=== PATIENT | male | born 2000 | race Caucasian/White ===

== ENCOUNTER → 2022-04-14 | Outpatient (CLI) | payer SELFPAY | END | disposition home or self-care (01) | PROVIDERS: Visit Provider Family Medicine | DX: R19.7 Diarrhea, unspecified (principal) | CPT/HCPCS: 87506 ==

== ENCOUNTER → 2022-05-04 | Outpatient (CLI) | payer OTHER, SELFPAY ==
[2022-05-04 12:50] LABS: Anion Gap 8 (5-15); BUN 11 mg/dL (7-18); BUN/Creat Ratio 15.6 RATIO (10-20); Calcium,Total 9.6 mg/dL (8.5-10.1); Chloride 106 mmol/L (98-107); Cholesterol 186 mg/dL (200); Creatinine, Serum 0.71 mg/dL (0.70-1.30); EST Glomerular Filtration Rate 147 mL/min (>60); Est Glom Filt Rate - Afr Amer 178 mL/min (>60); Glucose 89 mg/dL (74-106); High Density Lipoprotein 31 mg/dL; Potassium 3.8 mmol/L (3.5-5.1); Sodium Level 139 mmol/L (136-145); Triglycerides 166 mg/dL; Very Low Density Lipoprotein 33 mg/dL (5-40)
== END | disposition home or self-care (01) ==
LOC: MFPLAB 11:11
PROVIDERS: PCP Family Medicine; Referring Provider Family Medicine; Visit Provider Family Medicine
DX: Z13.1 Encounter for screening for diabetes mellitus (principal); Z13.220 Encounter for screening for lipoid disorders
CPT/HCPCS: 36415; 80048; 80061

== ENCOUNTER 2025-05-26 08:29 | Observation (INO) | payer MEDICAID, SELFPAY ==
[2025-05-26] VITALS (12 sets, daily range): BP systolic 118–169; BP diastolic 66–92; PULSE 55–95; RESP 14–25; TEMP 36.4–36.8; O2SAT 97–100; BMI 35.2; BMI 34.6
--- NOTE | 2025-05-26 08:56 | RAD_ITS ---
PROCEDURE: CHEST PA AND LATERAL 05/26/2025 REASON FOR EXAM: CHEST PAIN TECHNIQUE: CHEST PA AND LATERAL COMPARISON: None. FINDINGS: Heart: The heart size is normal. Mediastinum: The mediastinal contour is unremarkable. Lungs: The lungs are clear. Bones: The bones are unremarkable. No pleural effusion or pneumothorax is noted. RAD/Chest PA and Lateral IMPRESSION: NEGATIVE CHEST Reading Location: [place] [id number]
--- NOTE | 2025-05-26 08:56 | ED.VIS.DYS ---
HPI History of Present Illness Chief Complaint: Shortness of Breath Informant: patient and family Onset/Context/Timing Onset: Days Context: gradual Timing: Intermittent Quality: Positive for Dyspnea on exertion Current Severity: Moderate Maximum Severity: Moderate Worsened by: Exertion Relieved by: Rest Associated Symptoms Negative for cough Chest Pain: Positive for None Narrative Narrative: Healthy 24-year-old male no [facility] past medical history. States for the last 4 days started around Sunday he gets shortness of breath with exertion. No real chest pain. Says just walking in the ER up the ramp he had to stop. Denies any leg pain or swelling. No history of DVT or PE. No cardiac history. Denies any fever or chills. No significant cough. He has no known cardiac or pulmonary history. PE Risk Factors: Negative for Cancer, OCP + Smoking + > 35, Prior DVT or PE, Recent immobilization, Recent surgery or Recent travel Prior similar symptoms: No Recent Illness/Hospitalization: No PFSH PFSH Medical History no medical history no medical history Allergy/AdvReac Type Severity Reaction Status Date / Time No Known Allergies Allergy Verified 05/26/25 08:33 Social History Smoking Status: Current every day smoker tobacco type: smokeless tobacco ROS ROS ED ROS Narrative Exertional dyspnea. No fever. No cough. No chest pain. Constitutional Constitutional ED: Denies chills or fever(s) Eyes Eyes: Denies blurry vision ENT ENT ED: Denies ear pain Cardiovascular Cardiovascular: Denies chest pain Respiratory/Chest Respiratory/Chest: Reports dyspnea and dyspnea on exertion; Denies cough or sputum Gastrointestinal Gastrointestinal: Denies abdominal pain, constipation, diarrhea, melena, nausea or vomiting Genitourinary Genitourinary ED: Denies dysuria or hematuria Musculoskeletal Musculoskeletal: Denies arthralgias or back pain Integumentary Denies abscess or Abrasions Neurologic Neurologic: Denies headache(s) or paresthesias Psychiatric Psychiatric: Denies anxiety or depression Endocrine Endocrinology: Denies cold intolerance Hematologic/Lymphatic Hematologic/Lymphatic: Denies easy bleeding, easy bruising or lymphadenopathy Allergic/Immunologic Allergic/Immunologic ED: Denies mouth swelling, tongue swelling or urticaria EXAM Physical Exam Narrative Exam Narrative: 24-year-old male vital signs stable afebrile pulse ox 100% on room air clinically looks well sitting upright in bed. Family in the room. No distress. H EENT exam pupils round react light. Moist mucous membranes. Neck nontender no JVD. No lymphadenopathy. Back nontender. Lungs clear to auscultation bilaterally. Heart regular rate and rhythm rate about 60 no murmur. Chest wall and ribs nontender. Abdomen soft nontender. Moving all 4 extremities. Calves are nontender without edema or cords. Normal contract serviceman strength. Normal dorsi plantarflexion. Equal symmetrical radial pulses. Neurologically he is awake and alert. Answering questions and following commands. He has a very benign unremarkable exam. There is no edema. There is no calf pain. He has a normal sounding heart there is no murmurs. Normal rhythm. Const Vital Signs: 05/26/25 08:30 05/26/25 09:02 05/26/25 09:02 Temperature 97.9 F 97.6 F L Temperature Source Oral Temporal Pulse Rate 56 L 56 L Respiratory Rate 16 14 Blood Pressure 169/92 H 127/67 H Blood Pressure Mean 117 87 Pulse Ox 100 100 Oxygen Delivery Method Room Air Room Air 05/26/25 10:29 05/26/25 12:09 05/26/25 13:00 Temperature Temperature Source Pulse Rate 55 L 56 L 95 Respiratory Rate 16 20 H 16 Blood Pressure Blood Pressure Mean Pulse Ox 99 97 Oxygen Delivery Method Positive well developed; Negative for cachectic, contractures or unkempt General Appearance ED: well developed and NAD; Negative for unkempt, cachectic, contractures or pallor Nutritional Appearance: Negative for cachectic HEENT Reports moist mucous membranes atraumatic Eyes PERRL and EOMs intact bilaterally Neck no lymphadenopathy, supple, no meningeal signs and no JVD Resp normal respiratory effort and clear to auscultation bilaterally Effort and Inspection: Negative for pain with movement Auscultation: Negative for rales, rhonchi, wheezes or diminished lung sounds Cardio regular rate, regular rhythm, S1 normal heart sound, S2 normal heart sound and no murmurs Rate: Negative for bradycardia or tachycardic Rhythm: Negative for abnormal rhythm GI non-tender, non-distended and no masses Auscultation: normoactive bowel sounds Palpation: soft; Negative for tender, guarding or rebound tenderness present Back/Spine no CVA tenderness and normal to inspection General Back: Negative for CVA tenderness, tenderness or other Extremity normal to inspection General Extremety ED: Negative for edema or tenderness General Extremity: Negative for edema Neuro oriented x3, CN's II-XII intact bilaterally and no sensory deficits noted Sensorium / Orientation: alert, oriented to person, oriented to place and oriented to time Motor Exam: strength 5/5 throughout Psych mental status grossly normal Appearance: Negative for unkempt Thought Process: normal thought process Skin no wounds and skin turgor normal General Skin Exam: Negative for jaundice or pallor Lesions: no lesions Rashes: no rashes MDM MDM MDM Narrative Medical decision making narrative: 24-year-old male 4-day history of exertional dyspnea. No prior medical history. No cardiac or pulmonary history. No history or risk factors for DVT or PE. He has a benign exam. Undergoing cardiac workup. He is not wheezing. There is no history of a URI. Multiple repeat exams patient is doing well on my recent evaluation. He and family are aware that his test results look good. He has an abnormal EKG with an A-V dissociation. I spoke with our transformer repairer who spoke to an EP transformer repairer at [facility] who accept the patient in transfer. History & Record Review Discussion w/independent historian: Patient and Family Additional record(s) reviewed:: Prior outpatient record, Prior ED visit and Prior labs Lab Data Attestation: I reviewed the patient's lab results. Lab results narrative: CBC shows a white count of 10 H&H 14 and 43. Platelets 388. D-dimer is less than 0.27 normal. Troponin is 7. Electrolytes are unremarkable. Gap 14. BUN and creatinine of 10 and 0.75. Glucose 97. Chest x-ray unremarkable. Labs: Laboratory Results - last 24 hr 05/26/25 09:00 WBC 10.2 RBC 5.16 Hgb 14.7 Hct 43.4 MCV 84.1 MCH 28.5 MCHC 33.9 RDW Std Deviation 36.8 RDW Coeff of Phuc 12.1 Plt Count 388 MPV 9.7 Immature Gran % (Auto) 0.400 Neut % (Auto) 55.7 Lymph % (Auto) 34.3 [place] % (Auto) 7.6 Eos % (Auto) 1.4 Baso % (Auto) 0.6 Absolute Neuts (auto) 5.7 Absolute Lymphs (auto) 3.48 Nucleated RBC % 0 D-Dimer Quant (PE/DVT) < 0.27 L Sodium 138 Potassium 4.3 Chloride 104 Carbon Dioxide 20.2 L Anion Gap 14 BUN 10 Creatinine 0.75 Estim Creat Clear Calc 199.39 Est GFR (MDRD) Non-Af 129 BUN/Creatinine Ratio 13.2 Glucose 97 Calcium 9.6 Troponin T High Sens 7 Radiography Chest X-Ray - ED: 2 View, Read by ED Physician, Read by Radiologist, Normal, Heart, Lungs, Mediastinum, Bony Structures and No Acute Disease Diagnostic Testing: Clinical Impression(s) from Imaging Studies Chest X-Ray 05/26/25 08:56 IMPRESSION: NEGATIVE CHEST Reading Location: [place] [id number] Echocardiogram 05/26/25 10:04 Interpretation Summary Normal LV size. Left ventricular systolic function is normal. The left ventricular ejection fraction is 65 %. Mild (1+) eccentric mitral valve insufficiency. Pulmonary artery systolic pressure is 30 mmHg. Ordering Physician: Cesar Pink Referring Physician: Jean Sanchez MD Performed By: Mariana Freedman RDCS Chest x-ray, 2 views, AP and lateral, interpreted by myself and the radiologist. Shows no acute abnormality. Normal cardiac silhouette. Normal lung tovar. Rhythm Strip Rhythm Strip: Sinus Rhythm Rate: 60 Ectopy: None EKG Initial EKG: Attestation: I personally reviewed and interpreted this EKG as follows: Interpretation: Sinus Rhythm Comments: Sinus rhythm. Rate of about 60. AV disassociation. Prior EKG tracings: not available for review Discharge Plan Triage Chief Complaint: Shortness of Breath ED Provider: Cesar Pink Dx/Rx/DC Orders Clinical Impression: Exertional dyspnea, Atrioventricular (AV) dissociation Primary Care Provider: Jean Sanchez Referrals: Jean Sanchez MD [Primary Care Provider] - Print Language: [place] Disposition Disposition: Acute Care Hospital
[2025-05-26 09:13] LABS: Hematocrit 43.4 % (40-54); Hemoglobin 14.7 g/dL (13.0-16.5); Immature Granulocytes Count 0.040 X10^3/uL (0.0-0.0); Mean Corp Hgb Conc 33.9 g/dL (32-36); Mean Corpuscular Volume 84.1 fL (80-94); Mean Platelet Vol. 9.7 fl (6.2-12.0); NRBC Flagged by Analyzer 0 % (0-5); Platelet Count 388 K/mm3 (150-450); RBC Distribution Width CV 12.1 % (11.6-14.6); RBC Distribution Width SD 36.8 fl (35.1-43.9); Red Blood Count 5.16 M/mm3 (4.6-6.2); White Blood Count 10.2 K/mm3 (4.4-11.0)
[2025-05-26 09:37] LABS: Anion Gap 14 (5-15); BUN 10 mg/dL (4-19); BUN/Creat Ratio 13.2 RATIO (10-20); Calcium,Total 9.6 mg/dL (7.6-11.0); Carbon Dioxide 20.2 mmol/L (21.0-32.0); Chloride 104 mmol/L (98-108); Estimated Creatinine Clearance 199.39 ml/min (50-250); Glucose 97 mg/dL (70-99); Potassium 4.3 mmol/L (3.3-5.1); Troponin T High Sensitivity 7 ng/L (<=22)
[2025-05-26 09:38] LABS: D-Dimer Quantitative (DVT/PE) < 0.27 FEU/ug/m (0.27-0.49)
--- NOTE | 2025-05-26 10:04 | ECHOD_ITS ---
Reason For Study Reason For Study: COMPLETE HEART BLOCK Procedure This was a 2D Doppler, Color Flow transthoracic echocardiogram. Exam performed portable in ED. Left Ventricle Normal LV size. Left ventricular systolic function is normal. The left ventricular ejection fraction is 65 %. No regional wall motion abnormalities noted. Right Ventricle Normal RV size. Normal systolic function. Atria Normal left atrium. Normal right atrium. Mitral Valve Normal mitral valve. Mild (1+) eccentric mitral valve insufficiency. Tricuspid Valve Normal tricuspid valve. Mild (1+) tricuspid valve insufficiency. Pulmonary artery systolic pressure is 30 mmHg. Aortic Valve Normal aortic valve. Pulmonic Valve Normal pulmonic valve. Great Vessels Normal aortic root. The pulmonary artery is normal size. Normal inferior vena cava. Pericardium/Pleural No pericardial effusion. MMode/2D Measurements & Calculations LVIDd: 5.3 cm IVSd: 0.86 cm LVOT diam: 2.3 cm LVIDs: 3.3 cm LVPWd: 0.93 cm LVOT area: 4.0 cm2 RVDd: 4.8 cm FS: 36.7 % asc Aorta Diam: 3.5 cm LAV(MOD-bp): 56.8 ml LVAd ap4: 31.2 cm2 LAV(MOD-bp) Indexed: 23.9 ml/m2 LVLd ap4: 8.2 cm LAV(MOD-sp2): 65.1 ml EDV(MOD-sp4): 95.7 ml LAV(MOD-sp4): 48.7 ml EDV(sp4-el): 100.0 ml LVAs ap4: 16.4 cm2 LVLs ap4: 7.0 cm ESV(MOD-sp4): 33.8 ml ESV(sp4-el): 32.7 ml EF(MOD-sp4): 64.7 % EF(sp4-el): 67.3 % LVAd ap2: 26.1 cm2 SV(MOD-sp4): 61.9 ml SV(MOD-sp2): 46.9 ml LVLd ap2: 7.6 cm SI(MOD-sp4): 26.0 ml/m2 SI(MOD-sp2): 19.7 ml/m2 EDV(MOD-sp2): 76.7 ml EDV(sp2-el): 76.3 ml LVAs ap2: 14.2 cm2 LVLs ap2: 6.0 cm ESV(MOD-sp2): 29.8 ml ESV(sp2-el): 28.7 ml EF(MOD-sp2): 61.2 % SV(sp4-el): 67.2 ml Ao sinus diam: 3.[address] Junction: 2.8 cm LA dimension(2D): 4.3 cm LA A4 area: 18.4 cm2 RA A4 area: 13.7 cm2 TAPSE: 1.9 cm Time Measurements MV dec time: 0.22 sec Doppler Measurements & Calculations MV E max carter: 95.0 cm/sec Lat Peak E' Carter: 19.1 cm/sec Med Peak E' Carter: 12.1 cm/sec E/E' lat: 5.0 E/E' med: 7.8 Ao V2 max: 132.5 cm/sec LV V1 max: 113.9 cm/sec SV(LVOT): 92.1 ml Ao max P.0 mmHg LV V1 max P.2 mmHg Ao V2 mean: 88.8 cm/sec LV V1 mean P.8 mmHg Ao mean P.6 mmHg LV V1 mean: 77.1 cm/sec Ao V2 VTI: 27.1 cm LV V1 VTI: 23.1 cm AV (velocity ratio): 0.85 MARTIN(I,D): 3.4 cm2 MARTIN(V,D): 3.4 cm2 PA V2 max: 121.0 cm/sec TR max carter: 254.9 cm/sec TR max P.0 mmHg ECHO/Echo Complete Interpretation Summary Normal LV size. Left ventricular systolic function is normal. The left ventricular ejection fraction is 65 %. Mild (1+) eccentric mitral valve insufficiency. Pulmonary artery systolic pressure is 30 mmHg. Ordering Physician: Cesar Pink Referring Physician: Jean Sanchez MD Performed By: Mariana Freedman RDCS
--- NOTE | 2025-05-26 12:33 | ED.RN ---
Per Dr. Pink, we do not need delta troponins
--- NOTE | 2025-05-26 15:56 | ED.RN ---
I TALKED TO [facility] AND THEY ARE NOT SURE IF THE PATIENT WILL HAVE A BED TODAY.
--- NOTE | 2025-05-26 16:59 | PCM.HP.STD ---
HPI - General General Date of Admission: 05/26/25 Date of Service: 05/26/25 Chief Complaint: Shortness of breath with exertion HPI Narrative CARLITO HERNANDEZ, is a 24 M who presented to [facility] ED on 05/26/2025 with shortness of breath with exertion. Patient has no significant past medical history, is in good health at baseline. He began to have shortness of breath with exertion about 3 to 4 days ago. Today he states that even walking up the ramp coming into the ER he became quite short of breath and had to take a break. Denies any leg pain or swelling. Denies any cough or upper respiratory tract symptoms. In the ED his heart rate was low in the 50s but he was normotensive and stable on room air at rest. However, an EKG he was found to have A-V dissociation concerning for third-degree heart block. Case was discussed with cardiology who recommended urgent echo to be done in the ED. Echo showed EF 65%, normal LV size and function, no other concerning findings. Given new onset A-V dissociation of unclear etiology, cardiology recommended the patient be transferred to [facility] for EP services. Unfortunately [facility] had no beds available this evening, so hospitalist was contacted for admission. I saw the patient at bedside in the ED, and mother were present. Patient was sitting back comfortably in bed, conversing normally, in no acute distress. On further history, patient noticed a rash on his left inner thigh about 1 to 2 months ago. The rash was quite large and he did not know where it came from. It improved on its own after several days. He has also mild left knee pain with swelling but does state this is fairly chronic for him. He lives at [place] and notes that he spends a considerable amount of time in the [place]. He will check himself for ticks but notes he may not be as thorough as he should be. He currently has no pain or discomfort. No other acute concerns this time. [facility] Medical History no medical history Allergy/AdvReac Type Severity Reaction Status Date / Time No Known Allergies Allergy Verified 05/26/25 08:33 Social History Smoking Status: Current every day smoker tobacco type: smokeless tobacco ROS Constitutional Constitutional: Reports fatigue; Denies chills, fever(s) or weakness Eyes Eyes: Denies change in vision Cardiovascular Cardiovascular: Reports dyspnea on exertion; Denies chest pain, edema, lightheadedness or palpitations Respiratory/Chest Respiratory/Chest: Denies cough, shortness of breath at rest or wheezing Gastrointestinal Gastrointestinal: Denies abdominal pain Musculoskeletal Musculoskeletal: Denies arthralgias or myalgias Neurologic Neurologic: Denies dizziness, focal weakness or headache(s) Vital Signs Vital Signs Vital Signs: 05/26/25 08:30 05/26/25 09:02 05/26/25 09:02 Temperature 97.9 F 97.6 F L Temperature Source Oral Temporal Pulse Rate 56 L 56 L Respiratory Rate 16 14 Blood Pressure 169/92 H 127/67 H Blood Pressure Mean 117 87 Pulse Ox 100 100 Oxygen Delivery Method Room Air Room Air 05/26/25 10:29 05/26/25 12:09 05/26/25 13:00 Temperature Temperature Source Pulse Rate 55 L 56 L 95 Respiratory Rate 16 20 H 16 Blood Pressure Blood Pressure Mean Pulse Ox 99 97 Oxygen Delivery Method 05/26/25 14:18 05/26/25 14:26 05/26/25 15:00 Temperature Temperature Source Pulse Rate 55 L 59 L Respiratory Rate 16 25 H Blood Pressure 160/71 H Blood Pressure Mean 100 Pulse Ox 100 98 Oxygen Delivery Method 05/26/25 16:13 Temperature Temperature Source Pulse Rate 58 L Respiratory Rate 17 Blood Pressure Blood Pressure Mean Pulse Ox 100 Oxygen Delivery Method Weight Weight: 117.662 kg Body Mass Index (BMI) 35.2 Physical Exam Const alert, oriented x3 and no apparent distress Constitutional Narrative: Pleasant young male, class II obesity, sitting back comfortably in bed, conversing normally, in no acute distress. General Appearance: cooperative and comfortable HEENT normocephalic, head/scalp atraumatic, hearing grossly normal bilaterally, nasal mucous membranes and turbinates normal and moist oral mucous membranes Eyes PERRL, EOMs intact bilaterally and conjunctivae normal Neck full ROM Chest inspection of chest normal Resp normal respiratory effort, normal air movement, no use of accessory muscles and clear to auscultation bilaterally Cardio no murmurs and peripheral pulses 2+ throughout Cardio Narrative: Bradycardic, regular rhythm. GI normal to inspection, nondistended, normoactive bowel sounds, soft to palpation, non-tender and non-distended Back/Spine normal ROM Extremity normal to inspection, full ROM and no pedal edema Skin no rashes or lesions noted Psych mental status grossly normal Results Lab / Micro Data 05/26/25 09:00 05/26/25 09:00 Labs: Laboratory Results - last 24 hr 05/26/25 09:00: WBC 10.2, RBC 5.16, Hgb 14.7, Hct 43.4, MCV 84.1, MCH 28.5, MCHC 33.9, RDW Std Deviation 36.8, RDW Coeff of Phuc 12.1, Plt Count 388, MPV 9.7, Immature Gran % (Auto) 0.400, Neut % (Auto) 55.7, Lymph % (Auto) 34.3, [place] % (Auto) 7.6, Eos % (Auto) 1.4, Baso % (Auto) 0.6, Absolute Neuts (auto) 5.7, Absolute Lymphs (auto) 3.48, Nucleated RBC % 0, D-Dimer Quant (PE/DVT) < 0.27 L, Sodium 138, Potassium 4.3, Chloride 104, Carbon Dioxide 20.2 L, Anion Gap 14, BUN 10, Creatinine 0.75, Estim Creat Clear Calc 199.39, Est GFR (MDRD) Non-Af 129, BUN/Creatinine Ratio 13.2, Glucose 97, Calcium 9.6, Troponin T High Sens 7 Rhythm Strip Rhythm Strip: Sinus Rhythm Rate: 60 Ectopy: None Imaging Radiology Impression Chest X-Ray 05/26/25 08:56 IMPRESSION: NEGATIVE CHEST Reading Location: [place] [id number] Echocardiogram 05/26/25 10:04 Interpretation Summary Normal LV size. Left ventricular systolic function is normal. The left ventricular ejection fraction is 65 %. Mild (1+) eccentric mitral valve insufficiency. Pulmonary artery systolic pressure is 30 mmHg. Ordering Physician: Cesar Pink Referring Physician: Jean Sanchez MD Performed By: Mariana Freedman RDCS Assessment & Plan Assessment/Plan (1) Atrioventricular (AV) dissociation: (2) Exertional dyspnea: PLAN: Plan Patient is a 24-year-old male who presented to [facility] ED on 05/26/2025 with shortness of breath with exertion. 1. A?V dissociation concerning for third-degree heart block, concern for Lyme disease ? Admit under inpatient status to PCU. Presented with SOB with exertion. EKG in ED showed A-V dissociation concerning for third-degree heart block. Was discussed with cardiology and plan is for transfer to [facility] for EP services. No formal cardiology consult placed but Dr. Flanagan is aware of the patient. Heart rate in the mid 50s, normotensive and stable on room air at rest in the ED. Chest x-ray unremarkable. Echo in the ED with EF 65%, no concerning findings. Patient does report left inner thigh rash about 1 to 2 months ago and spends considerable time in the [place]. Have concern for Lyme disease as the etiology for this cardiac arrhythmia. Lyme studies sent but will take several days to result, so will empirically treat with p.o. doxycycline at this time. Continue cardiac monitoring. Atropine as needed ordered. Will be transferred to [facility] once bed is available. 2. Class II obesity ? BMI 35.2 on admit. Encouraged lifestyle modifications. DVT prophylaxis: Lovenox CODE STATUS: Full code, verified Expected disposition: Transfer to [facility] Total clinical time spent by myself addressing the patient's medical issues, reviewing all the data, and collaborating with patient's care team: 55 minutes. Charges/Coding Visit Charges Inpatient E&M: 62197 Init Hosp L2
--- NOTE | 2025-05-26 17:20 | PN.HOSP_ITS ---
Hospitalist Note Patient was evaluated in the Emergency Department at [facility] on 05/26/2025. At the time of evaluation, transfer to a tertiary hospital was felt to be in the patient's best interest due to complete heart block. Attempts were made by the Emergency Department and/or the Hospitalist team to get patient to the appropriate level of care. Although the pt is accepted for transfer to [facility], there are no staffed beds currently available. Given the need for ongoing medical care, patient will be admitted to [facility] on 05/26, and care will be provided here until [facility] has an available staffed bed. Pt and/or family are aware of the transfer, the reasoning behind the need for transfer, and that until a staffed bed becomes available, we will provide evidence-based care to the best of our abilities, with the limitations of care here being fully addressed.
[2025-05-26 19:24] LABS: Troponin T High Sensitivity 14 ng/L (<=22)
--- NOTE | 2025-05-26 19:40 | DCINST_ITS ---
Discharge Instructions DC O2, CPAP, BIPAP needs Home O2 Discharge instructions: No Follow Up Care Test Results: Test results from this visit will be discussed in further detail at your follow- up appointment, if applicable. Discharge Plan Admission Admit Date/Time: 05/26/25 16:59 Primary Reason for Your Visit: Shortness of breath with exertion Attending Provider: Jaren Chandler Primary Care Provider: Jean Sanchez Discharge Orders/Prescriptions Referrals / Follow Up: Jean Sanchez MD [Primary Care Provider] - Disposition Disposition (needs filled in before D/C Order can be placed): Acute Care Hospital
--- NOTE | 2025-05-26 19:40 | PCM.DC.SUM ---
Providers Date of Admission: 05/26/25 Date of Discharge: 05/26/25 Primary Care Physician: Dr. Jean Sanchez MD Reason For Visit: AV DISSOCIATIAON W/ SOB W/ EXERTION Diagnosis Discharge Diagnosis (1) Atrioventricular (AV) dissociation: Status: Acute Code(s): I45.89 - Other specified conduction disorders (2) Exertional dyspnea: Status: Acute Code(s): R06.09 - Other forms of dyspnea Hospital Course Operations None Procedures EKG, Transthoracic echo and - (Chest x-ray) Summary of Care Provided Minutes Spent on Discharge: 35 Hospital Course: Patient is a 24-year-old male who presented to [facility] ED on 05/26/2025 with shortness of breath with exertion. Short hospital course as noted below. Patient transferred to [facility] on the evening of 05/26 for further management. 1. A?V dissociation concerning for third-degree heart block, concern for Lyme disease ? Presented with SOB with exertion. EKG in ED showed A-V dissociation concerning for third-degree heart block. Heart rate in the mid 50s, normotensive and stable on room air at rest in the ED. Chest x-ray unremarkable. Echo in the ED with EF 65%, no concerning findings. Patient did report left inner thigh rash about 1 to 2 months ago and spends considerable time in the varghese. Have concern for Lyme disease as the etiology for this cardiac arrhythmia. Lyme studies sent but will take several days to result, so empirically initiated on treatment with p.o. doxycycline at this time. Case was discussed with cardiology here who recommended transfer to [facility] for cardiac EP evaluation. Transferred on the evening of 05/26 in stable condition. 2. Class II obesity ? BMI 35.2 on admit. Encouraged lifestyle modifications. Total clinical time spent by myself addressing the patient's medical issues, reviewing all the data, and collaborating with patient's care team: 35 minutes. Physical Exam Const alert, oriented x3 and no apparent distress Constitutional Narrative: Pleasant young male, class II obesity, sitting back comfortably in bed, conversing normally, in no acute distress. General Appearance: cooperative and comfortable HEENT normocephalic, head/scalp atraumatic, hearing grossly normal bilaterally, nasal mucous membranes and turbinates normal and moist oral mucous membranes Eyes PERRL, EOMs intact bilaterally and conjunctivae normal Neck full ROM Chest inspection of chest normal Resp normal respiratory effort, normal air movement, no use of accessory muscles and clear to auscultation bilaterally Cardio no murmurs and peripheral pulses 2+ throughout Cardio Narrative: Bradycardic, regular rhythm. GI normal to inspection, nondistended, normoactive bowel sounds, soft to palpation, non-tender and non-distended Back/Spine normal ROM Extremity normal to inspection, full ROM and no pedal edema Skin no rashes or lesions noted Psych mental status grossly normal Weight / BMI Weight Weight: 115.7 kg Body Mass Index (BMI) 34.6 ABG / Lab / Microbiology Data 05/26/25 09:00 05/26/25 09:00 Laboratory: Laboratory Results - last 24 hr 05/26/25 09:00: WBC 10.2, RBC 5.16, Hgb 14.7, Hct 43.4, MCV 84.1, MCH 28.5, MCHC 33.9, RDW Std Deviation 36.8, RDW Coeff of Phuc 12.1, Plt Count 388, MPV 9.7, Immature Gran % (Auto) 0.400, Neut % (Auto) 55.7, Lymph % (Auto) 34.3, [place] % (Auto) 7.6, Eos % (Auto) 1.4, Baso % (Auto) 0.6, Absolute Neuts (auto) 5.7, Absolute Lymphs (auto) 3.48, Nucleated RBC % 0, D-Dimer Quant (PE/DVT) < 0.27 L, Sodium 138, Potassium 4.3, Chloride 104, Carbon Dioxide 20.2 L, Anion Gap 14, BUN 10, Creatinine 0.75, Estim Creat Clear Calc 199.39, Est GFR (MDRD) Non-Af 129, BUN/Creatinine Ratio 13.2, Glucose 97, Calcium 9.6, Troponin T High Sens 7 05/26/25 18:54: Troponin T High Sens 14 D Radiography Diagnostic Testing: Radiology Impression Chest X-Ray 05/26/25 08:56 IMPRESSION: NEGATIVE CHEST Reading Location: [place] [id number] Echocardiogram 05/26/25 10:04 Interpretation Summary Normal LV size. Left ventricular systolic function is normal. The left ventricular ejection fraction is 65 %. Mild (1+) eccentric mitral valve insufficiency. Pulmonary artery systolic pressure is 30 mmHg. Ordering Physician: Cesar Pink Referring Physician: Jean Sanchez MD Performed By: Mariana Freedman RDCS D/C Instructions DC O2, CPAP, BIPAP Needs Home O2 Discharge instructions: No Meaningful Use Info Meaningful Use Meaningful Use Diagnoses (Choose all that apply): None applicable Discharge Plan Admission Admit Date/Time: 05/26/25 16:59 Primary Reason for Your Visit: Shortness of breath with exertion Attending Provider: Jaren Chandler Primary Care Provider: Jean Sanchez Discharge Orders/Prescriptions Referrals / Follow Up: Jean Sanchez MD [Primary Care Provider] - Disposition Disposition (needs filled in before D/C Order can be placed): Acute Care Hospital Charges/Coding Visit Charges Inpatient E&M: 37053 Disch Hosp >30min
--- NOTE | 2025-05-26 20:15 | PCM.HOSP.N ---
Hospitalist Note Notified by nursing staff that patient was refusing to be transferred to [facility] and wanted to leave the hospital here to go home. I discussed this in detail with the patient and his . They note that given he feels fine at this time and that his echo was normal, they would prefer to treat a possible Lyme disease with antibiotics at home and could call cardiology to follow-up as needed. They also note that patient does not have medical insurance and they are very concerned about the cost of both this hospitalization and a transfer down to [facility]. I strongly impressed to them that while Lyme disease is a possible reason for his complete heart block, it is by no means the certain etiology and it is imperative that he have cardiac EP testing done urgently. I noted that while his heart rate and blood pressure are currently stable, with his third-degree heart block there is a significant chance that he could have worsening of his hemodynamics requiring emergent medical attention. I noted that the risks of them leaving the hospital AGAINST MEDICAL ADVICE include serious harm including given the third-degree heart block. Despite these recommendations, patient requested to leave AGAINST MEDICAL ADVICE. I will prescribe a 14-day course of doxycycline for him on discharge. I also recommended that given we do not have cardiac EP services available here, if he has worsening symptoms that he go to a tertiary center such as [facility] if possible for further evaluation.
--- NOTE | 2025-05-26 20:23 | DCINST_ITS ---
Discharge Instructions DC O2, CPAP, BIPAP needs Home O2 Discharge instructions: No Follow Up Care Test Results: Test results from this visit will be discussed in further detail at your follow- up appointment, if applicable. Discharge Plan Admission Admit Date/Time: 05/26/25 16:59 Primary Reason for Your Visit: Shortness of breath with exertion Attending Provider: Jaren Chandler Primary Care Provider: Jean Sanchez Discharge Orders/Prescriptions Prescriptions: New doxycycline monohydrate 100 mg Capsule 100 mg PO BID 14 Days Qty: 28 0RF Referrals / Follow Up: Jean Sanchez MD [Primary Care Provider] - Disposition Disposition (needs filled in before D/C Order can be placed): Against Medical Advice
[2025-05-30 17:08] LABS: Lyme Scn Total Ab w/Rflx Positive (Negative)
== END 2025-05-26 20:53 | disposition left against medical advice (07) | DRG 201 ==
LOC: ED 13:18 → PCU 17:39
PROVIDERS: Admitting Provider Hospitalist; Emergency Provider Emergency Medicine; PCP Family Medicine; Visit Provider Hospitalist
DX: I45.89 Other specified conduction disorders (principal); E66.812 Obesity, class 2; I49.9 Cardiac arrhythmia, unspecified; F17.220 Nicotine dependence, chewing tobacco, uncomplicated; Z68.35 Body mass index [BMI] 35.0-35.9, adult; Z53.29 Procedure and treatment not carried out because of patient's decision for other reasons; R06.02 Shortness of breath; R94.31 Abnormal electrocardiogram [ECG] [EKG]; M25.462 Effusion, left knee; I08.1 Rheumatic disorders of both mitral and tricuspid valves
CPT/HCPCS: 71046; 80048; 84443; 84484; 85025; 85379; 86617; 86618; 93005; 93306; 99221; 99285; G0378